=== PATIENT | female | born 1995 | race Hispanic/Latino ===

== ENCOUNTER 2018-08-08 00:45 | Emergency (ER) | payer OTHER, SELFPAY ==
[2018-08-08 01:01] LABS: Bilirubin Negative (Negative); Blood, Urine Negative (Negative); Clarity CLEAR (Clear); Glucose, Urine (Dipstick) Negative (Negative); Leukocyte Small (Negative); Nitrite Negative (Negative); Pregnancy Test - Urine (BHCG) POSITIVE (Negative); Pregu Control Background? CLEAR/WHITE (CLR/WHITE); Pregu Control Bar Appear? YES (CONTROL BAR); Protein, Urine (Dipstick) Negative (Neg-Trace); Specific Gravity 1.021 (1.002-1.036); Specific Gravity, Urine 1.021 (1.002-1.036); pH, Urine 7.5 (5.0-9.0)
[2018-08-08 01:04] LABS: Bacteria/HPF None Seen HPF (None Seen); Hyaline Casts/LPF 0-3 HYALINE CAST LPF (0-3 Hyaline); Pathc Cast-AUWi Flag 0.29 (0-2.49); RBC/HPF 0-3 HPF (0-3); Squamous Epithelial 0-3 HPF (0-3); WBC/HPF 0-3 HPF (0-3)
[2018-08-08] MEDS ORDERED: Acetaminophen 500 MG TAB ONE (01:05)
[2018-08-08 01:07] LABS: #Basophils 0.1 thou/uL (0.0-0.2); #Eosinphils 0.1 thou/uL (0.0-0.7); #Lymphocytes 3.2 thou/uL (1.20-3.40); #Monocytes 0.7 thou/uL (0.11-0.59); #Neutrophils 3.9 thou/uL (1.40-6.50); %Basophils 1.6 % (0.0-1.0); %Eosinophils 0.8 % (0.0-10.0); %Lymphocytes 39.9 % (21.0-51.0); %Monocytes 8.8 % (0.0-10.0); %Neutrophils 48.9 % (42.0-75.0); Hemoglobin 12.6 g/dL (12.0-16.0); Mean Corpuscular HGB CONC 33.8 g/dL (32.0-36.0); Mean Corpuscular Hemoglobin 30.9 pg (27.0-31.0); Mean Corpuscular Volume 91.2 fL (78.0-98.0); Mean Platelet Volume 7.9 fL (7.4-10.4); Platelet Count 265 thou/uL (130-400); RBC Distribution Width 12.6 % (11.5-14.5); Red Blood Cell (RBC) Count 4.07 mill/uL (4.20-5.40); White Blood Cell (WBC) Count 8.1 thou/uL (4.8-10.8)
[2018-08-08 01:31] LABS: ALT (SGPT) 12 U/L (8-55); AST (SGOT) 18 U/L (5-34); Albumin 4.5 g/dL (3.5-5.0); Alkaline Phosphatase 75 U/L (40-150); Anion Gap 8 mmol/L (10-20); BUN (Urea Nitrogen) 13 mg/dL (7.0-18.7); Bilirubin, Total 0.4 mg/dL (0.2-1.2); Calc. Creatinine Clearance 0 mL/min (70-130); Calcium 9.5 mg/dL (7.8-10.44); Carbon Dioxide 27 mmol/L (22-29); Chloride 104 mmol/L (98-107); Estimated GFR-MDRD Greater than 90; Globulin 2.9 g/dL (2.4-3.5); Glucose 71 mg/dL (70-105); Lipase 26 U/L (8-78); Potassium 3.8 mmol/L (3.5-5.1); Protein, Total 7.4 g/dL (6.0-8.3); Sodium 135 mmol/L (136-145)
--- NOTE | 2018-08-08 09:18 | ULT ---
PRELIMINARY REPORT/[facility]/EMERGENTY AFTER-HOURS PROCEDURE US First Trimester, Transabdominal US Duplex Arterial/Venous of the Pelvis, Complete CLINICAL HISTORY: 23 years old, female; Pain; Other: Pelvic pain; Gestational age or lmp: ? "1 month ago"; TECHNIQUE: Real-time transabdominal obstetrical ultrasound of the maternal pelvis and a first trimester pregnanc y with image documentation. Real-time duplex ultrasound scan of the pelvis integrating B-mode two-dim ensional vascular structure, Doppler spectral analysis and color flow Doppler imaging. COMPARISON: No relevant prior studies available. FINDINGS: Gestation: There is an intrauterine gestational sac (MSD: 0.48cm-5w2d) with possible yolk sac and que stionable pole, although no heart motion detected by transabdominal ultrasound. Placenta/amniotic fluid: Cannot be adequately evaluated due to the early gestational age. Uterus/cervix: See above. No myometrial mass. Right ovary: Right ovarian probable dominant follicle/corpus luteum. Otherwise unremarkable. Normal blood flow. No evidence of torsion. Left ovary: No acute findings. No mass. Normal blood flow. No evidence of torsion. Free fluid: Mild right adnexal/paraovarian free fluid. IMPRESSION: There is an intrauterine gestational sac with possible yolk sac and questionable pole, although no heart motion detected by transabdominal ultrasound. Recommend further evaluation with transvaginal ultrasound. Other findings above. Thank you for allowing us to participate in the care of your patient. Dictated and Authenticated by: Steve Hayse MD 08/08/2018 2:45 AM Central Time ([place] & [place]) FINAL REPORT PELVIC ULTRASOUND: HISTORY: Pain. COMPARISON: None. TECHNIQUE: Transabdominal and endovaginal imaging of the pelvis was performed. Ovaries are interrogated with gr ay scale, color flow, Doppler imaging, and spectral waveform analysis. FINDINGS: This report is in agreement with the preliminary report by [facility]. There is an anechoic focus in the en dometrium which may represent a gestational sac. Definite yolk sac and pole are not appreciate d. Uterus measures 6.8 x 4.3 x 5.5 cm. There are follicles and cysts in the right ovary. There is evidence of free fluid in the right adnexa. Followup ultrasound and sera beta HGCs are recommended. POS: H
== END 2018-08-08 03:42 | disposition home or self-care (01) ==
LOC: ERS 00:45
DX: O99.89 Other specified diseases and conditions complicating pregnancy, childbirth and the puerperium (principal); R10.31 Right lower quadrant pain; R10.32 Left lower quadrant pain
CPT/HCPCS: 36415; 76856; 80053; 81003; 81015; 81025; 83690; 84702; 85025; 93976

== ENCOUNTER 2018-11-11 06:42 | Outpatient (CLI) | payer OTHER ==
--- NOTE | 2018-11-11 09:59 | ULT ---
ULTRASOUND OBSTETRICAL COMPLETE: DATE: 11/11/2018. TIME: 7:28 a.m. HISTORY: A 26-year-old female who presents for Z32.00, encounter for confirmation of test result with physical examination. FINDINGS: number: patel. lie: cephalic. Maternal cervix: closed and 3.5 cm in length. Placenta: anterior and low lying, with distal tip 1.5 cm from center of internal cervical os. Amniotic fluid volume: subjectively normal. ALLYSON not measured. heart rate: 140 b.p.m. The following anatomy is visualized, with no evidence of anomalies: Head, cerebellum, cisternal magna, 4-chamber heart, stomach, kidneys, cord insertion, bladder, spine, upper extremities, lower extremities, and 3-vessel cord. The nose and lips are not well visualized. The lateral ventricles appear asymmetrical and possibly dilated, but that could be due to head positioning. biometry: Head circumference (HC): 16.7 cm 19 w 3 d Biparietal diameter (BPD): 14.4 cm 19 w 3 d Abdominal circumference (AC): 13.1 cm 18 w 5 d Femur length (FL): 2.7 cm 18 w 2 d Average ultrasound age (AUA): 19 w 0 d Estimated date of delivery (KRIS): 04/07/2019. Last menstrual period (LMP): 07/05/2018. Gestational age by LMP: 18 w 3 d. Estimated weight (EFW): 246 g +/- 36 g (0 lb 9 oz +/- 1 oz). IMPRESSION: 1. Live 2nd trimester intrauterine gestation. 2. Estimated gestational age of 19 weeks, 0 days. 3. Cephalic lie. 4. Apparent asymmetry between the left and right lateral ventricles. This could be technical, due to head position. Recommend followup obstetrical ultrasound. KATHY Mcgregor POS: [facility]
== END 2018-11-11 06:43 | disposition home or self-care (01) ==
LOC: BICULT 06:42
PROVIDERS: ATTEND Family Medicine
DX: Z32.00 Encounter for pregnancy test, result unknown (principal)
CPT/HCPCS: 76805

== ENCOUNTER 2018-12-29 15:11 | Outpatient (CLI) | payer OTHER ==
--- NOTE | 2018-12-29 16:08 | ULT ---
ULTRASOUND OBSTETRICAL COMPLETE: 12/29/18 HISTORY: ICD-10: O44.42, low lying placenta, NOS or without hemorrhage, second trimester. FINDINGS: number: Saunders. lie: Footling breech. Maternal cervix: 3.5 cm long and closed. Placenta: Anterior. No placenta previa. Distal tip of placenta is at least 3.5 cm proximal to the cer vix. Amniotic fluid volume: 14 cm. heart rate: 144 bpm The following anatomy is visualized, with no evidence of anomalies: Head, lateral ventricles, cerebellum, nose and lips, four chamber heart, umbilical cord, and stomach. There was concern previously about asymmetry between the lateral ventricles on the previous ultrasou nd of 11/11/18. That is no longer the case. The ventricles appear normal. biometry: Head circumference (HC): 23.5 cm 25w 4d Biparietal diameter (BPD): 6.1 cm 25w 0d Abdominal circumference (AC): 22.0 cm 26w 3d Femur length (FL): 4.6 cm 25w 2d Average ultrasound age (AUA): 25w 4d Estimated date of delivery (KRIS): 04/09/2019. Last menstrual period (LMP):07/05/2018. Gestational age by LMP: 25w 2d Estimated weight (EFW): 854 g +/- 125 g. IMPRESSION: 1. Live late second trimester intrauterine gestation. 2. Estimated gestational age of 25 weeks, 4 days. 3. Footling breech lie. 4. No placenta previa. cherry [] POS: [facility]
== END 2018-12-29 15:12 | disposition home or self-care (01) ==
LOC: BICULT 15:11
PROVIDERS: ATTEND Family Medicine
DX: O44.42 Low lying placenta NOS or without hemorrhage, second trimester (principal); Z3A.25 25 weeks gestation of pregnancy
CPT/HCPCS: 76805

== ENCOUNTER 2019-03-20 08:13 | Outpatient (CLI) | payer OTHER ==
--- NOTE | 2019-03-20 09:04 | ULT ---
ULTRASOUND OBSTETRICAL COMPLETE: DATE: 03/20/2019 HISTORY: 23-year-old female in "IUGR Intrauterine growth restriction affecting care of mother, third trimester , not applicable or unspecified fetus" FINDINGS: number: patel lie: Cephalic Maternal cervix: 3.5 cm. Closed. Placenta: Grade 3. Anterior. No placenta previa. Amniotic fluid volume: ALLYSON = 6.5cm heart rate: 128 bpm The following anatomy is visualized, with no evidence of anomalies: Four-chamber heart, stomach, kidneys, and three-vessel cord. biometry: Biparietal diameter (BPD): 3.2 cm 33 w 1 d Head circumference (HC): 31.1 cm 34 w 6 d Abdominal circumference (AC): 32.3 cm 36 w 2 d Femur length (FL): 6.8 cm 34 w 6 d Average ultrasound age (AUA): 34 w 6 d Estimated date of delivery (KRIS): 04/25/2019 Estimated weight (EFW): 2659 g +/- 388 g IMPRESSION: 1) Live 3rd trimester intrauterine gestation. 2) Estimated gestational age of 34 weeks, 6 days 3) cephalic lie. 4) discrepancy in estimated gestational age between current biometry and those of prior ultraso unds. 5) grade 3 placenta
== END 2019-03-20 08:14 | disposition home or self-care (01) ==
LOC: BICULT 08:13
PROVIDERS: ATTEND Family Medicine
DX: O36.5930 Maternal care for other known or suspected poor fetal growth, third trimester, not applicable or unspecified (principal); Z3A.34 34 weeks gestation of pregnancy
CPT/HCPCS: 76815

== ENCOUNTER 2023-02-04 13:42 | Emergency (ER) | payer OTHER, SELFPAY ==
[2023-02-04] MEDS ORDERED: Ketorolac Tromethamine 30 MG/ML VIAL ONE (15:43)
== END 2023-02-04 17:53 | disposition home or self-care (01) ==
LOC: ERS 13:42
DX: M79.18 Myalgia, other site (principal)
CPT/HCPCS: 96372; J1885